=== PATIENT | female | born 2000 | race Caucasian/White ===

== ENCOUNTER 2025-04-13 02:09 | Inpatient (IN) | payer MEDICAID, OTHER ==
[~2025-04-13] VITALS: Ht 157.5 cm; Wt 63.5 kg
[2025-04-13 02:58] LABS: COVID AG,FIA SOURCE NASAL SWAB
[2025-04-13 02:59] LABS: PLATELET COUNT (AUTO) 404 K/uL (150-450); RED BLOOD CELL COUNT(AUTO) 4.73 MIL/uL (4.00-5.20); RED CELL DISTRIBUTION WIDTH 12.4 % (11.5-14.5); WHITE BLOOD COUNT (AUTO) 5.3 K/uL (4.5-11.0)
[2025-04-13 03:09] LABS: SARS-COV2 (COVID) ANTIGEN,FIA Negative (Negative)
[2025-04-13 03:10] LABS: CALCIUM, TOTAL 8.7 mg/dL (8.8-10.5); CREATININE 0.60 mg/dL (0.60-1.30); GLOMERULAR FILTR. RATE CALC > 60 mL/min (>60); GLUCOSE,RANDOM 102 mg/dL (70-110); SODIUM SERUM 144 mmol/L (136-145); UREA NITROGEN, BLOOD 6 mg/dL (7-18)
[2025-04-13] MEDS ORDERED: ZOLPIDEM TARTRATE 10 MG TABLET PO PRN (04:15)
[2025-04-13 04:18] LABS: PH,URINE DRUG SCREEN 5.5 (5.0-8.0)
[2025-04-13 04:26] LABS: ALCOHOL, URINE DRUG SCREEN POSITIVE (NEGATIVE); AMPHET/METH SCREEN,URINE NEGATIVE (NEGATIVE); BARBITURATE SCREEN, URINE NEGATIVE (NEGATIVE); CANNABINOID SCREEN,URINE NEGATIVE (NEGATIVE); COCAINE SCREEN,URINE NEGATIVE (NEGATIVE); METHADONE SCREEN, URINE NEGATIVE (NEGATIVE)
[2025-04-13 05:13] LABS: APPEARANCE,URINE CLEAR (CLEAR); GLUCOSE, URINE (UA) NEGATIVE (NEGATIVE); LEUKOCYTE ESTERASE ,URINE NEGATIVE (NEGATIVE); NITRATE,URINE NEGATIVE (NEGATIVE); OCCULT BLOOD,URINE NEGATIVE (NEGATIVE); SPECIFIC GRAVITIY, URINE 1.014 (1.003-1.030)
[2025-04-13 09:34] VITALS: O2SAT 99
[2025-04-13] MEDS ORDERED: DOCUSATE SODIUM 100 MG CAPSULE PO PRN (12:15)
[2025-04-13] MEDS ORDERED: ALBUTEROL SULFATE HFA 90 MCG/PUFF 8 GM INHALER IH PRN (12:15)
[2025-04-13] MEDS ORDERED: ACETAMINOPHEN 325 MG TABLET PO PRN (12:15)
[2025-04-13] MEDS ORDERED: LOPERAMIDE HCL 2 MG CAPSULE PO PRN (12:15)
[2025-04-13] MEDS ORDERED: MAG HYDROX/ALUMINUM HYD/SIMETH ES 30 ML SUSPENSION UDCUP PO PRN (12:15)
[2025-04-13] MEDS ORDERED: ONDANSETRON 4 MG TABLET PO PRN (12:15)
[2025-04-13] MEDS ORDERED: NICOTINE 14 MG/24 HOUR PATCH TD PRN (12:15)
[2025-04-13] MEDS ORDERED: MAGNESIUM HYDROXIDE SUSPENSION 30 ML UDCUP PO PRN (12:15)
[2025-04-13] MEDS ORDERED: GuaiFENesin/D-METHORPHAN [SUGAR-FREE] 200-20MG/10 ML SYRUP UDCUP PO PRN (12:15)
[2025-04-13] MEDS ORDERED: PETROLATUM,WHITE 28 GM JELLY TP PRN (12:15)
[2025-04-13] MEDS ORDERED: IBUPROFEN 400 MG TABLET PO PRN (12:15)
[2025-04-13 13:46] VITALS: BP 123/98; PULSE 86; RESP 16; TEMP 97; O2SAT 99
[2025-04-13 20:00] VITALS: BP 119/83; PULSE 75; RESP 17; TEMP 97.8; O2SAT 100
[2025-04-14 08:16] VITALS: BP 98/60; PULSE 63; RESP 16; TEMP 97.7; O2SAT 98
[2025-04-14 09:32] LABS: PLATELET COUNT (AUTO) 363 K/uL (150-450); RED BLOOD CELL COUNT(AUTO) 4.68 MIL/uL (4.00-5.20); RED CELL DISTRIBUTION WIDTH 12.4 % (11.5-14.5); WHITE BLOOD COUNT (AUTO) 5.2 K/uL (4.5-11.0)
[2025-04-14 09:59] LABS: ASPARTATE AMINOTRANSFERASE 18 U/L (15-37); CALCIUM, TOTAL 8.8 mg/dL (8.8-10.5); CHOL/HDL RATIO 3.0 (3.9-5.7); CREATININE 0.68 mg/dL (0.60-1.30); GLOMERULAR FILTR. RATE CALC > 60 mL/min (>60); GLUCOSE,RANDOM 92 mg/dL (70-110); LDL CHOL (CALC.) 90 mg/dL (0-130); SODIUM SERUM 142 mmol/L (136-145); TOTAL PROTEIN, SERUM 7.7 g/dL (6.4-8.2); UREA NITROGEN, BLOOD 11 mg/dL (7-18)
[2025-04-14 20:10] VITALS: BP 105/68; PULSE 65; RESP 17; TEMP 98.1; O2SAT 98
[2025-04-15] MEDS: SERTRALINE HCL 50 MG TABLET PO SCH (07:58)
[2025-04-15 08:10] VITALS: BP 112/81; PULSE 72; RESP 16; TEMP 98; O2SAT 100
[2025-04-15 09:58] LABS: APPEARANCE,URINE HAZY (CLEAR); GLUCOSE, URINE (UA) NEGATIVE (NEGATIVE); LEUKOCYTE ESTERASE ,URINE TRACE (NEGATIVE); NITRATE,URINE NEGATIVE (NEGATIVE); OCCULT BLOOD,URINE NEGATIVE (NEGATIVE); SPECIFIC GRAVITIY, URINE 1.008 (1.003-1.030)
[2025-04-15 10:02] LABS: PH,URINE DRUG SCREEN 7.0 (5.0-8.0)
[2025-04-15 10:07] LABS: AMPHET/METH SCREEN,URINE NEGATIVE (NEGATIVE); BARBITURATE SCREEN, URINE NEGATIVE (NEGATIVE); CANNABINOID SCREEN,URINE NEGATIVE (NEGATIVE); COCAINE SCREEN,URINE NEGATIVE (NEGATIVE); METHADONE SCREEN, URINE NEGATIVE (NEGATIVE)
[2025-04-15 10:09] LABS: ALCOHOL, URINE DRUG SCREEN NEGATIVE (NEGATIVE)
[2025-04-15 10:39] LABS: SQUAMOUS EPITHELIAL CELL,UR Moderate /LPF (None Seen)
[2025-04-15 20:17] VITALS: BP 121/78; PULSE 60; RESP 18; TEMP 98; O2SAT 99
[2025-04-16] MEDS ORDERED: SERT-158 PO (07:37)
[2025-04-16 08:25] VITALS: BP 115/75; PULSE 76; RESP 16; TEMP 98.2; O2SAT 99
== END 2025-04-16 10:42 | disposition home or self-care (01) | DRG 751 ==
LOC: EMS 02:12 → B3A 09:55
PROVIDERS: ADMIT Psychiatry & Neurology Child & Adolescent Psychiatry; ATTEND Psychiatry & Neurology Child & Adolescent Psychiatry
PROC: GZ56ZZZ Individual Psychotherapy, Supportive (ICD-10-PCS; principal; 2025-04-14)
PROC: GZ58ZZZ Individual Psychotherapy, Cognitive-Behavioral (ICD-10-PCS; 2025-04-14)
PROC: GZHZZZZ Group Psychotherapy (ICD-10-PCS; 2025-04-14)
DX: F33.2 Major depressive disorder, recurrent severe without psychotic features (principal); R45.851 Suicidal ideations; F10.20 Alcohol dependence, uncomplicated; I10 Essential (primary) hypertension; G47.00 Insomnia, unspecified; Z20.822 Contact with and (suspected) exposure to COVID-19; Z79.899 Other long term (current) drug therapy; Z87.59 Personal history of other complications of pregnancy, childbirth and the puerperium; Y90.4 Blood alcohol level of 80-99 mg/100 ml
CPT/HCPCS: 80048; 80053; 80061; 80307; 81001; 81003; 83036; 84436; 84443; 84703; 85025; 99285; G0480